=== PATIENT | male | born 1955 | race Caucasian/White ===

== ENCOUNTER 2016-10-19 11:29 | Observation (INO) | payer OTHER ==
--- NOTE | 2016-10-19 11:57 | PDOC ---
History of Present Illness - General Chief Complaint: Shortness of Breath Stated Complaint: shortness of breath Time Seen by Provider: 10/19/16 11:37 History Source: Patient Exam Limitations: No Limitations - History of Present Illness Initial Comments: 10/19/16 12:22 Patient is a 61-year-old male with past medical history of hypertension, GERD who presents to the emergency department today complaining of 2 episodes of dizziness and shortness of breath over the past 24 hours. Patient states that he was going about his daily activities when he had 2 separate episodes where he felt very lightheaded and dizzy. He had to sit down to feel better; he also had associated shortness of breath and chest pressure. Patient states that his blood pressure is elevated today and that is not usual for him. He has no diagnosis of hypertension. Pt. reports having a negative stress test approximately 4 times. He has had three separate cardiac caths in the past for similar symptoms with no stents placed. Denies fevers, chills, palpitations, edema, weakness, unsteady gait, nausea, vomiting, diarrhea, constipation, frequency, urgency, hematuria Past History - Travel Traveled outside of the country in the last 30 days: No Close contact w/someone who was outside of country & ill: No - Past Medical History Allergies/Adverse Reactions: Allergies Allergy/AdvReac Type Severity Reaction Status Date / Time No Known Allergies Allergy Verified 03/18/15 19:53 Home Medications: Ambulatory Orders Aspirin Coated [Ecotrin -] 81 mg PO DAILY #30 tab 10/20/16 Metoprolol Succinate [Toprol XL -] 25 mg PO DAILY #30 tab 10/20/16 Rosuvastatin [Crestor -] 10 mg PO HS #30 tablet 10/20/16 Cardiac Disorders: Yes (IRREGULAR HEART BEAT) GI Disorders: Yes (GERD) HTN: Yes Hypercholesterolemia: Yes Psychiatric Problems: Yes (H/O ANXIETY..NON MEDICATED) - Surgical History Abdominal Surgery: Yes Appendectomy: Yes - Immunization History Immunization Up to Date: (unknown) - Psycho/Social/Smoking Cessation Hx Anxiety: Yes Suicidal Ideation: No Smoking Status: No Smoking History: Never smoked Have you smoked in the past 12 months: No Number of Cigarettes Smoked Daily: 0 Information on smoking cessation initiated: No Hx Alcohol Use: No Drug/Substance Use Hx: No Substance Use Type: Alcohol Hx Substance Use Treatment: No Review of Systems - Review of Systems Constitutional: Yes: Weakness. No: Fever, Malaise HEENTM: No: Recent change in vision, Double Vision, Throat Pain, Throat Swelling Respiratory: Yes: Shortness of Breath, SOB with Exertion. No: Cough, Orthopnea , Wheezing Cardiac (ROS): Yes: Chest Pain, Lightheadedness. No: Edema, Irregular Heart Rate, Palpitations ABD/GI: No: Diarrhea, Nausea, Vomiting : No: Burning, Dysuria, Frequency, Flank Pain, Hematuria Musculoskeletal: No: Back Pain, Joint Pain Neurological: Yes: Dizziness. No: Headache, Numbness, Weakness, Unsteady Gait Psychiatric: Yes: Anxiety All Other Systems: Reviewed and Negative *Physical Exam - Vital Signs Last Vital Signs Temp Pulse Resp BP Pulse Ox 99 F 78 18 183/88 98 10/19/16 11:40 10/19/16 11:46 10/19/16 11:40 10/19/16 11:40 10/19/16 11:46 - Physical Exam Comments: 10/19/16 13:22 GENERAL: Well developed, well nourished. Awake and alert. No acute distress. HEENT: Normocephalic, atraumatic. PERRLA, EOMI. No conjunctival pallor. Sclera are non- icteric. Moist mucous membranes. Oropharynx is clear. NECK: Supple. Full ROM. No JVD. Carotid pulses 2+ and symmetric, without bruits. No thyromegaly. No lymphadenopathy. CARDIOVASCULAR: Regular rate and rhythm. No murmurs, rubs, or gallops. Distal pulses are 2+ and symmetric. PULMONARY: No evidence of respiratory distress. Lungs clear to auscultation bilaterally. No wheezing, rales or rhonchi. ABDOMINAL: Soft. Non-tender. Non-distended. No rebound or guarding. No organomegaly. Normoactive bowel sounds. MUSCULOSKELETAL Normal range of motion at all joints. No bony deformities or tenderness. No CVA tenderness. EXTREMITIES: No cyanosis. No clubbing. No edema. No calf tenderness. SKIN: Warm and dry. Normal capillary refill. No rashes. No jaundice. NEUROLOGICAL: Alert, awake, appropriate. Cranial nerves 2-12 intact. No deficits to light touch and temperature in face, upper extremities and lower extremities. No motor deficits in the in face, upper extremities and lower extremities. Normoreflexic in the upper and lower extremities. Normal speech. Toes are down- going bilaterally. Gait is normal without ataxia. PSYCHIATRIC: Cooperative. Good eye contact. Appropriate mood and affect. Heart Score/ECG Review - History History: Moderately suspicious - Electrocardiogram EKG: Normal - Age Age: 45-65 - Risk Factors Risk Factors Heart Score: Yes Hx Hypercholesterolemia, Yes Hx Obesity Based on the list above the patient has:: 1-2 risk factors - Troponin Troponin: </= normal limit - Score Heart Score - Total: 3 ED Treatment Course - LABORATORY CBC & Chemistry Diagram: 10/20/16 05:35 10/20/16 05:35 Medical Decision Making - Medical Decision Making 10/19/16 13:37 Patient is a 61-year-old male with past medical history of hypertension, GERD who presents to the emergency department today complaining of 2 episodes of dizziness and shortness of breath over the past 24 hours. Given the patient had multiple episodes of dizziness and chest pressure and shortness of breath concerned that this could possibly be ACS, dehydration. 1. CBC, CMP, Cardiac Profie, PT/INR 2. CXR, EKG 3. Re-evaluate EKG: Rate 78, Normal intervals, normal axis. Sinus rhythm, with no acute ST-T wave changes 10/19/16 14:28 CBC, CMP, and Troponin are WNL. Given story, cardiac history and length of time since last stress test, will call to admit for observation. 10/19/16 14:32 [facility] accepts the pt. for observation at this time *DC/Admit/Observation/Transfer Diagnosis at time of Disposition: Hypertensive urgency, Near syncope - Discharge Dispostion Disposition: HOME Condition at time of disposition: Stable Admit: Yes - Prescriptions
[2016-10-19 12:25] LABS: MCH 27.5 pg (25.7-33.7); MCHC 33.3 g/dl (32.0-35.9); MEAN CELL VOLUME 82.6 fl (80-96); MEAN PLT VOLUME 7.6 fl (7.5-11.1); PLATELET COUNT 213 K/MM3 (134-434); RDW 14.1 % (11.9-15.9); WHITE BLOOD COUNT 8.9 K/mm3 (4.0-10.0)
[2016-10-19 12:27] LABS: URINE APPEARANCE CLEAR; URINE BILIRUBIN NEGATIVE (NEGATIVE); URINE BLOOD NEGATIVE (NEGATIVE); URINE COLOR COLORLESS; URINE GLUCOSE (UA) NEGATIVE (NEGATIVE); URINE KETONE NEGATIVE (NEGATIVE); URINE LEUK ESTERASE NEGATIVE (NEGATIVE); URINE NITRITE NEGATIVE (NEGATIVE); URINE PROTEIN NEGATIVE (NEGATIVE); URINE UROBILINOGEN NEGATIVE mg/dL (0.2-1.0)
--- NOTE | 2016-10-19 12:27 | PDOC ---
*Physical Exam - Vital Signs Last Vital Signs Temp Pulse Resp BP Pulse Ox 99 F 78 18 183/88 98 10/19/16 11:40 10/19/16 11:46 10/19/16 11:40 10/19/16 11:40 10/19/16 11:46 Heart Score/ECG Review #1 General ECG Interpretation: Sinus Rhythm, Normal Rate (78), Normal Intervals, No acute ischemic changes ED Treatment Course - LABORATORY CBC & Chemistry Diagram: 10/19/16 12:16 10/19/16 12:16 Medical Decision Making - Medical Decision Making 10/19/16 12:23 Patient seen and evaluated with the nurse practitioner. I agree with the overall evaluation, assessment, and management with the following summary of visit: 61-year-old male with history of high cholesterol and reportedly normal stress and cardiac catheterizations in the past, last was 4-5 years ago, presents with 2 episodes of lightheadedness and shortness of breath, each very transient. Currently asx, reports unlimited exercise tolerance at baseline. Elevated blood pressure 180/90, vitals otherwise normal. Well-appearing, exam is normal Question new onset hypertension/hypertensive urgency versus ACS. Will need cardiac workup including echo and blood pressure control. labs, ekg, cxr bp med admit obs tele *DC/Admit/Observation/Transfer Diagnosis at time of Disposition: Hypertensive urgency, Pre-syncope
[2016-10-19 12:52] LABS: ALBUMIN 3.9 g/dl (3.4-5.0); ALK PHOS 146 U/L (45-117); ANION GAP 6 (8-16); BILIRUBIN,TOTAL 0.4 mg/dL (0.2-1.0); CALCIUM 8.8 mg/dL (8.5-10.1); CO2 30 mmol/L (21-32); CREATININE 0.7 mg/dL (0.7-1.3); GLUCOSE,RANDOM 98 mg/dL (74-106); SGOT/AST 24 U/L (15-37); SGPT/ALT 41 U/L (12-78); TOT PROT 7.3 g/dl (6.4-8.2)
[2016-10-19 12:54] LABS: TROPONIN I < 0.02 ng/ml (0.00-0.05)
[2016-10-19 12:58] LABS: INR 1.02 (0.82-1.09); PROTHROMBIN TIME (PATIENT) 11.2 SEC (9.98-11.88)
--- NOTE | 2016-10-19 15:35 | CON.CARD ---
Consult Consult Specialty:: Cardiology Referred by:: Hospitalist Reason for Consultation:: Cardiac evaluation - History of Present Illness Chief Complaint: Dizziness History of Present Illness: Patient is a 61 year old male of descent with underlying history of hypercholesterolemia and new onset hypertension and underlying GERD and anxiety who presents with complaints of dizziness and shortness of breath for the past 24 hours. He denies history of syncope. He denies chest pain or palpitations. He reports history of arrhythmia, but could not specify what kind of arrhythmia in the past. He has had abnormal stress testing in the past and was sent for cardiac catheterization at [facility] about 10 years ago and then at [facility] 5-6 years ago. He states that it was unremarkable without need for PCI. He denies fever or chills. he denies paroxysmal nocturnal dyspnea or orthopnea. He denies headache at this time. He denies nausea, vomiting, diarrhea or abdominal pain. 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 No: CAD Psych: Yes: Anxiety, Panic Endocrine: No: Diabetes Mellitus - Past Surgical History Past Surgical History: Yes: Appendectomy - Alcohol/Substance Use Hx Alcohol Use: Yes (Social) History of Substance Use: reports: None - Smoking History Smoking history: Never smoked Have you smoked in the past 12 months: No Aproximately how many cigarettes per day: 0 Home Medications - Allergies Allergies/Adverse Reactions: Allergies Allergy/AdvReac Type Severity Reaction Status Date / Time No Known Allergies Allergy Verified 03/18/15 19:53 - Home Medications Home Medications: Ambulatory Orders Rosuvastatin Calcium [Crestor] 10 mg PO HS 03/18/15 Family Disease History - Family Disease History Family History: Denies Review of Systems - Review of Systems Constitutional: denies: Chills, Fever Cardiovascular: reports: Shortness of Breath. denies: Chest Pain, Palpitations Respiratory: reports: Snoring, SOB. denies: Cough, Hemoptysis, Orthopnea, PND, Wheezing Gastrointestinal: denies: Abdominal Pain, Constipation, Diarrhea, Melena, Nausea , Rectal Bleeding, Vomiting Neurological: reports: Dizziness, Syncope (Near syncope). denies: Headache, Numbness, Seizure, Tremors, Unsteady Gait, Weakness Vital Signs: Vital Signs Temperature 99 F 10/19/16 11:40 Pulse Rate 76 10/19/16 14:08 Respiratory Rate 16 10/19/16 14:08 Blood Pressure 142/74 10/19/16 14:08 O2 Sat by Pulse Oximetry (%) 98 10/19/16 14:08 HENT: Yes: Atraumatic Neck: Yes: Supple Respiratory: Yes: CTA Bilaterally Gastrointestinal: Yes: Normal Bowel Sounds, Soft, Abdomen, Obese. No: Tenderness Cardiovascular: Yes: Regular Rate and Rhythm JVD: No Carotid Bruit: No PMI: Non-Displaced Heart Sounds: Yes: S1, S2. No: Gallop Edema: No Peripheral Pulses WNL: Yes - Other Data Labs, Other Data: INR, PTT INR 1.02 (0.82-1.09) 10/19/16 12:16 Laboratory Results - last 24 hr 10/19/16 10/19/16 10/19/16 12:16 12:16 12:16 WBC 8.9 RBC 5.42 Hgb 14.9 Hct 44.8 MCV 82.6 MCH 27.5 MCHC 33.3 RDW 14.1 Plt Count 213 MPV 7.6 Neutrophils % Y Lymphocytes % Y INR Sodium 138 Potassium 3.9 Chloride 102 Carbon Dioxide 30 Anion Gap 6 L BUN 11 D Creatinine 0.7 Creat Clearance w eGFR > 60 Random Glucose 98 Calcium 8.8 Total Bilirubin 0.4 D AST 24 ALT 41 Alkaline Phosphatase 146 H Creatine Kinase 114 Troponin I < 0.02 Total Protein 7.3 Albumin 3.9 Urine Color Colorless Urine Appearance Clear Urine pH 7.0 Urine Protein Negative Urine Glucose (UA) Negative Urine Ketones Negative Urine Blood Negative Urine Nitrite Negative Urine Bilirubin Negative Urine Urobilinogen Negative Ur Leukocyte Esterase Negative Normal sinus rhythm with no ST-T abnormality Echo: Pending Imaging - Results Chest X-ray: Report Reviewed Ultrasound: Report Reviewed (Carotid Doppler) EKG: Report Reviewed Problem List - Problems (1) Near syncope Code(s): R55 - SYNCOPE AND COLLAPSE (2) Fatty liver Code(s): K76.0 - FATTY (CHANGE OF) LIVER, NOT ELSEWHERE CLASSIFIED (3) GERD (gastroesophageal reflux disease) Code(s): K21.9 - GASTRO-ESOPHAGEAL REFLUX DISEASE WITHOUT ESOPHAGITIS Qualifiers: Esophagitis presence: with esophagitis Qualified Code(s): K21.0 - Gastro-esophageal reflux disease with esophagitis (4) Panic attack Code(s): F41.0 - PANIC DISORDER WITHOUT AGORAPHOBIA (5) Anxiety Code(s): F41.9 - ANXIETY DISORDER, UNSPECIFIED (6) HTN (hypertension) Code(s): I10 - ESSENTIAL (PRIMARY) HYPERTENSION Qualifiers: Hypertension type: essential hypertension Qualified Code(s): I10 - Essential (primary) hypertension (7) Hypercholesterolemia Code(s): E78.00 - PURE HYPERCHOLESTEROLEMIA, UNSPECIFIED (8) Obstructive sleep apnea Code(s): G47.33 - OBSTRUCTIVE SLEEP APNEA (ADULT) (PEDIATRIC) Assessment/Plan 1. Dizziness and near syncope, etiology to be determined 2. Hypertension 3. Hypercholesterolemia 4. Anxiety disorder/panic attack (intermittent) 5. GERD 6. Suspect OSAS PLAN: 1. Serial cardiac enzyme 2. Transthoracic echocardiography to assess RV/LV and valvular function 3. Continue Rosuvastatin and check fasting lipid panel 4. Consider adding low dose beta jorje as tolerated - Metoprolol ER 25 mg once a day 5. ASA 81 mg once a day 6. Obtain prior cardiac catheterization report from [facility] 7. Sleep study to be considered as outpatient and CPAP if clinically indicated 8. Check TSH Further plans are to follow Koko Velazquez MD
[2016-10-19] MEDS ORDERED: METOPROLOL SUCCINATE 50 MG TAB.SR.24H (FP) ONE (16:25)
[2016-10-19] MEDS ORDERED: ASPIRIN 81 MG CHEWABLE TABLETS ONE (16:25)
[2016-10-19] MEDS: ASPIRIN COATED 81 MG TABLET.EC PO SCH (17:03)
[2016-10-19] MEDS: METOPROLOL SUCCINATE 25 MG TAB.SR.24H (FP) PO SCH (17:03)
[2016-10-19 17:09] VITALS: BMI 31.6
--- NOTE | 2016-10-19 17:42 | HP ---
Admitting History and Physical - Admission Chief Complaint: pre syncope/dizziness x2 History of Present Illness: HPI This 61 year old male with pmhx of HLD, ? arrhythmia, cardiac cath at [facility] , 6 years ago no stents, appendectomy and "greasy liver" presented to the ED after feeling lightheaded, dizzy with SOB at work. 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 This was the second episode where he felt dizzy and had to sit down. The first one was at 11pm last night. Neither times did he completely lose consciousness nor hit his head. The episode today he felt hot and sweaty before hand with sob. While in ED he was found to be hypertensive. 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 His last stress test was 4 years ago and he sees "Orly" at [facility]. Currently, he denies shortness of breath, CP, nausea, vomiting, palpitations changes in bowel or urinary habits. History Source: Patient - Past Medical History Cardiovascular: Yes: HTN, Hyperlipdemia. 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 History of Recent Travel: No Home Medications - Allergies Allergies/Adverse Reactions: Allergies Allergy/AdvReac Type Severity Reaction Status Date / Time No Known Allergies Allergy Verified 03/18/15 19:53 - Home Medications Home Medications: Ambulatory Orders Rosuvastatin Calcium [Crestor] 10 mg PO HS 03/18/15 Review of Systems - Review of Systems Constitutional: reports: No Symptoms Eyes: reports: No Symptoms HENT: reports: No Symptoms Neck: reports: No Symptoms Cardiovascular: reports: Shortness of Breath Respiratory: reports: SOB Gastrointestinal: reports: No Symptoms Genitourinary: reports: No Symptoms Musculoskeletal: reports: No Symptoms Integumentary: reports: No Symptoms Neurological: reports: Change in LOC, Dizziness Endocrine: reports: No Symptoms Hematology/Lymphatic: reports: No Symptoms Psychiatric: reports: No Symptoms Physical Examination Vital Signs: Vital Signs Temperature 99 F 10/19/16 11:40 Pulse Rate 101 H 10/19/16 17:01 Respiratory Rate 18 10/19/16 17:01 Blood Pressure 160/95 10/19/16 17:01 O2 Sat by Pulse Oximetry (%) 97 10/19/16 17:01 Constitutional: Yes: No Distress Eyes: Yes: Conjunctiva Clear HENT: Yes: Atraumatic Neck: Yes: Supple Cardiovascular: Yes: Regular Rate and Rhythm, S1, S2 Respiratory: Yes: Regular, CTA Bilaterally Gastrointestinal: Yes: Normal Bowel Sounds, Soft Renal/: Yes: WNL Musculoskeletal: Yes: WNL Extremities: Yes: WNL Edema: No Integumentary: Yes: WNL Neurological: Yes: Alert, Oriented, Cran Nerves II-XII Intact Psychiatric: Yes: Alert, Oriented Imaging - Results Chest X-ray: Report Reviewed (no acute pathology), Image Reviewed Cat Scan: Report Reviewed (no acute intracranial pathology) Ultrasound: Report Reviewed (no hemodynamic stenosis no CD) Problem List - Problems (1) Hypercholesterolemia Code(s): E78.00 - PURE HYPERCHOLESTEROLEMIA, UNSPECIFIED (2) Near syncope Code(s): R55 - SYNCOPE AND COLLAPSE Assessment/Plan Assessment: 61 year old male admitted with near syncope x2, dizziness, and shortness of breath. Plan: 1. Pre syncope - possibly d.t new onset HTN, r/o cardiac arrhythmia - CT head and CD unremarkable - ECHO ordered - Check TSH - Obtain [place] cardiac cath report - Start ASA - Cardiology seeing 2. SOB - Initial trop negative - Trend trops - BEA sleep study 3. HLD - Lipid panel - Continue crestor 4. HTN - Start metoprolol 25mg daily 5. DVT ppx - SCDs Dispo: - Admitted for tele observation Visit type - Emergency Visit Emergency Visit: Yes ED Registration Date: 10/19/16 Care time: The patient presented to the Emergency Department on the above date and was hospitalized for further evaluation of their emergent condition. - New Patient This patient is new to me today: Yes Date on this admission: 10/19/16 - Critical Care Critical Care patient: No
[2016-10-19 19:39] LABS: TROPONIN I < 0.02 ng/ml (0.00-0.05)
[2016-10-19] MEDS ORDERED: ROSUVASTATIN CA 10 MG TABLET (FP) PO SCH (22:00)
[2016-10-20 07:24] LABS: BASOPHIL 0.3 % (0-2.0); EOSINOPHIL 3.5 % (0-4.5); MCH 27.5 pg (25.7-33.7); MCHC 32.9 g/dl (32.0-35.9); MEAN CELL VOLUME 83.6 fl (80-96); MEAN PLT VOLUME 8.1 fl (7.5-11.1); NEUTROPHILS 52.6 % (42.8-82.8); PLATELET COUNT 219 K/MM3 (134-434); WHITE BLOOD COUNT 7.8 K/mm3 (4.0-10.0)
[2016-10-20 07:51] LABS: ALBUMIN 3.3 g/dl (3.4-5.0); ANION GAP 9 (8-16); BILIRUBIN,TOTAL 0.2 mg/dL (0.2-1.0); CALCIUM 8.5 mg/dL (8.5-10.1); CO2 26 mmol/L (21-32); CREATININE 0.7 mg/dL (0.7-1.3); GLUCOSE,RANDOM 93 mg/dL (74-106); MAGNESIUM 2.4 mg/dL (1.8-2.4); PHOSPHOROUS 4.2 mg/dL (2.5-4.9); SGOT/AST 15 U/L (15-37); SGPT/ALT 32 U/L (12-78); TOT PROT 6.2 g/dl (6.4-8.2)
[2016-10-20 07:54] LABS: ALK PHOS 118 U/L (45-117); TROPONIN I < 0.02 ng/ml (0.00-0.05)
[2016-10-20 09:58] LABS: THYROID STIMULATING HORMONE 1.73 uIU/ml (0.358-3.74)
[2016-10-20] MEDS: METOPROLOL SUCCINATE 25 MG TAB.SR.24H (FP) PO SCH (10:06)
[2016-10-20] MEDS: ASPIRIN COATED 81 MG TABLET.EC PO SCH (10:06)
--- NOTE | 2016-10-20 13:07 | PN ---
Progress Note, Physician History of Present Illness: No further dizziness, near or true syncope. - Current Medication List Current Medications: Active Medications Aspirin (Ecotrin -) 81 mg PO DAILY [facility] Last Admin: 10/20/16 10:06 Dose: 81 mg Metoprolol Succinate (Toprol Xl -) 25 mg PO DAILY [facility] Last Admin: 10/20/16 10:06 Dose: 25 mg Rosuvastatin Calcium (Crestor -) 10 mg PO HS [facility] Last Admin: 10/19/16 23:00 Dose: 10 mg - Objective Vital Signs: Vital Signs Temperature 97.8 F 10/20/16 06:00 Pulse Rate 68 10/20/16 06:00 Respiratory Rate 20 10/20/16 06:00 Blood Pressure 116/67 10/20/16 06:00 O2 Sat by Pulse Oximetry (%) 97 10/19/16 17:01 Constitutional: Yes: No Distress, Calm Neck: Yes: Supple Cardiovascular: Yes: Regular Rate and Rhythm Respiratory: Yes: Regular, CTA Bilaterally Gastrointestinal: Yes: Normal Bowel Sounds, Soft Edema: No Labs: CBC, BMP 10/20/16 05:35 10/20/16 05:35 INR, PTT INR 1.02 (0.82-1.09) 10/19/16 12:16 - ....Imaging EKG: Report Reviewed (Tele: No events) Problem List - Problems (1) HTN (hypertension) Code(s): I10 - ESSENTIAL (PRIMARY) HYPERTENSION Qualifiers: Hypertension type: essential hypertension Qualified Code(s): I10 - Essential (primary) hypertension (2) Hypercholesterolemia Code(s): E78.00 - PURE HYPERCHOLESTEROLEMIA, UNSPECIFIED (3) Near syncope Code(s): R55 - SYNCOPE AND COLLAPSE Assessment/Plan 1. Dizziness and near syncope since resolved 2. Hypertension 3. Hypercholesterolemia 4. Anxiety disorder/panic attack (intermittent) 5. GERD 6. Suspect OSAS PLAN: 1. Ruled out for CT 2. F/u transthoracic echocardiography to assess RV/LV and valvular function 3. Continue Rosuvastatin 10 qhs, Metoprolol ER 25 mg once a day and ASA 81 mg once a day 4. Obtain prior cardiac catheterization report from [facility] for review 5. Sleep study to be considered as outpatient and CPAP if clinically indicated 6. D/c planning
--- NOTE | 2016-10-20 14:57 | EKG ---
Test Reason : Blood Pressure : / mmHG Vent. Rate : 078 BPM Atrial Rate : 078 BPM P-R Int : 160 ms QRS Dur : 088 ms QT Int : 382 ms P-R-T Axes : 031 -23 014 degrees QTc Int : 435 ms NORMAL SINUS RHYTHM NORMAL ECG WHEN COMPARED WITH ECG OF 18-MAR-2015 21:15, NO SIGNIFICANT CHANGE WAS FOUND Confirmed by CASS PAULINO MD ([id number]) on 10/20/2016 2:56:45 PM Referred By: Confirmed By:CASS PAULINO MD
--- NOTE | 2016-10-20 15:18 | DS ---
Physical Exam: SUBJECTIVE: Patient seen and examined at bedside. Denies all c/o at present. Requesting stress test. OBJECTIVE: Vital Signs 3 Period Temp Pulse Resp BP Sys/Castañeda Pulse Ox Last 24 Hr 97.7 F-98.8 F 68-88 18-20 116-154/66-82 PHYSICAL EXAM GENERAL: The patient is awake, alert, and fully oriented, in no acute distress. HEAD: Normal with no signs of trauma. EYES: PERRL, extraocular movements intact, sclera anicteric, conjunctiva clear. ENT: Ears normal, nares patent, oropharynx clear without exudates, moist mucous membranes. NECK: Trachea midline, full range of motion, supple. No JVD present. LUNGS: Breath sounds equal, clear to auscultation bilaterally, no wheezes, no crackles, no accessory muscle use. HEART: Regular rate and rhythm, S1, S2 without murmur, rub or gallop. ABDOMEN: Soft, nontender, nondistended, normoactive bowel sounds, no guarding, no rebound, no hepatosplenomegaly, no masses. EXTREMITIES: 2+ pulses, warm, well-perfused, no edema. NEUROLOGICAL: Cranial nerves II through XII grossly intact. Normal speech, gait steady. PSYCH: Normal mood, normal affect. SKIN: Warm, dry, normal turgor, no rashes or lesions noted. LABS Laboratory Results - last 24 hr 3 10/19/16 10/20/16 10/20/16 18:30 05:35 05:35 WBC 7.8 RBC 5.00 Hgb 13.7 Hct 41.8 MCV 83.6 MCH 27.5 MCHC 32.9 RDW 14.0 Plt Count 219 MPV 8.1 Neutrophils % 52.6 Lymphocytes % 34.0 Monocytes % 9.6 Eosinophils % 3.5 Basophils % 0.3 D Sodium 141 Potassium 4.0 Chloride 106 Carbon Dioxide 26 Anion Gap 9 BUN 13 Creatinine 0.7 Creat Clearance w eGFR > 60 Random Glucose 93 Calcium 8.5 Phosphorus 4.2 Magnesium 2.4 Total Bilirubin 0.2 D AST 15 D ALT 32 D Alkaline Phosphatase 118 H Creatine Kinase 86 Troponin I < 0.02 < 0.02 Total Protein 6.2 L Albumin 3.3 L TSH 1.73 HOSPITAL COURSE: Date of Admission:10/19/16 Date of Discharge: 10/20/16 Minutes to complete discharge: 45 Discharge Summary Reason For Visit: HYPERTENSIVE URGENCY, PRE-SYNCOPE Current Active Problems Anxiety (Acute) HTN (hypertension) (Acute) Hypercholesterolemia (Acute) Hypertensive urgency (Acute) Near syncope (Acute) Obstructive sleep apnea (Acute) Hospital Course: This 61 year old male with pmhx of HLD, ? arrhythmia, cardiac cath at [facility] , 6 years ago no stents, appendectomy and "greasy liver" presented to the ED after feeling lightheaded, dizzy with SOB at work. 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 This was the second episode where he felt dizzy and had to sit down. The first one was at 11pm 10/18. Neither time did he completely lose consciousness nor hit his head. The episode on 10/19, he felt hot and sweaty before he felt sob. While in ED he was found to be hypertensive. He denied shortness of breath, CP, nausea, vomiting, palpitations changes in bowel or urinary habits. Troponins reulted (-) x3. Echo- LV normal size, function, and thickness. LV EF- normal. Mild to moderate tricuspid regurg. RV systolic pressure is normal. Mild pulmonic valve regurg. Trace mitral regurg. Head Ct- wnl. Carotid doppler showed no significant carotid stenosis. Metoprolol XR started at 50mg. Recommend BEA workup as an outpatient. Condition: Stable - Instructions Diet, Activity, Other Instructions: Eat a low low sodium diet. Take Toprol XL as newly prescribed. Call your primary doctor for an appointment within 2 weeks to schedule a sleep study. 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 Return to ER for dizziness, chest pain, shortness of breath, jaw pain, or any other complaints. Referrals: Nicholas Healy [Primary Care Provider] - Disposition: HOME - Home Medications Comprehensive Discharge Medication List: Ambulatory Orders Rosuvastatin Calcium [Crestor] 10 mg PO HS 03/18/15 This patient is new to me today: Yes Date on this admission: 10/20/16 Emergency Visit: Yes ED Registration Date: 10/19/16 Care time: The patient presented to the Emergency Department on the above date and was hospitalized for further evaluation of their emergent condition. Critical Care patient: No - Discharge Referral Referred to [facility] No
[2016-10-20 18:44] VITALS: BP 118/62; PULSE 79; TEMP 98.8
== END 2016-10-20 18:13 | disposition home or self-care (01) ==
LOC: JER 11:29 → JERBED 13:59 → UNDOADMOB 13:59 → INTOOBSV 13:59 → J4W 17:35 → JERBED 17:35 → J4W 17:44
PROVIDERS: ADMIT Internal Medicine; ATTEND Nurse Practitioner Family
DX: I16.0 Hypertensive urgency (principal); R55 Syncope and collapse; K76.0 Fatty (change of) liver, not elsewhere classified; K21.9 Gastro-esophageal reflux disease without esophagitis; F41.9 Anxiety disorder, unspecified; F41.0 Panic disorder [episodic paroxysmal anxiety]; I10 Essential (primary) hypertension; G47.33 Obstructive sleep apnea (adult) (pediatric); E78.00 Pure hypercholesterolemia, unspecified; Z98.61 Coronary angioplasty status
CPT/HCPCS: 36415; 70450-TC; 71020-TC; 80053; 81003; 82550; 83735; 84100; 84443; 84484; 85025; 85610; 93005; 93010; 93306-TC; 93880-TC; 99285-25; G0378

== ENCOUNTER 2016-11-10 08:32 | Emergency (ER) | payer OTHER ==
[2016-11-10 08:42] VITALS: TEMP 98.1; BMI 33.6
--- NOTE | 2016-11-10 09:28 | PDOC ---
History of Present Illness - General History Source: Patient Exam Limitations: No Limitations - History of Present Illness Initial Comments: 11/10/16 09:30 The patient is a 61 year old male, with a significant past medical history of HTN, HL and GERD, who presents to the emergency department with intermittent episodes of gradual onset bitemporal headache, lightheadedness, SOB for 2 years. The patient reports having of sensations of passing out when these episodes occur. Denies LOC. The patient describes his dizziness as the lightheadedness, especially when he is breathing fast and is often made worse after standing up. He reports being seen in this ER on 10/19/16 presenting with similar symptoms with no alleviation since his discharge. The patient notes having an increase of stress and anxiety since his passing away about 2 years ago, and this can trigger these episodes. He also states during these episodes noting his BP being elevated. He denies any recent fevers or chills. He denies any recent vomit, diarrhea or constipation. He denies any recent chest pain. He denies any recent dysuria, frequency, urgency or hematuria. He denies focal weakness or numbness. His daughter relates that he has had these episodes on and off for 2 years. She reports that he often calls her while he's having these episodes. When she goes over to his house she finds that she is able to calm him down by asking him to breathe through his nose and out of his mouth or by making him tea. She feels these episodes are triggered when he's feeling stressed or anxious. She feels that he needs to talk to a psychiatrist but reports having difficulty getting him into see his primary doctor to make a referral. She was able to make an appointment for him on November 15 but has not been able to make a sooner appointment and requests our help with this. Allergies: NKA Past surgical history: None reported. Social History: Nonsmoker. Denies EtOH use and recreational drug use. Primary Care Physician: Not on Staff <Edson Reinoso - Last Filed: 11/10/16 09:49> <Loida Bañuelos - Last Filed: 11/10/16 11:25> - General Chief Complaint: Headache Stated Complaint: ELEVATED BP Time Seen by Provider: 11/10/16 08:49 Past History <Edson Reinoso - Last Filed: 11/10/16 09:49> - Past Medical History Cardiac Disorders: Yes (IRREGULAR HEART BEAT) GI Disorders: Yes (GERD) HTN: Yes Hypercholesterolemia: Yes Psychiatric Problems: Yes (H/O ANXIETY..NON MEDICATED) - Surgical History Abdominal Surgery: Yes Appendectomy: Yes - Immunization History Immunization Up to Date: (unknown) - Psycho/Social/Smoking Cessation Hx Anxiety: Yes Suicidal Ideation: No Smoking Status: No Smoking History: Never smoked Have you smoked in the past 12 months: No Number of Cigarettes Smoked Daily: 0 Information on smoking cessation initiated: No Hx Alcohol Use: No Drug/Substance Use Hx: No Substance Use Type: Alcohol Hx Substance Use Treatment: No <Nassef,Yomna - Last Filed: 11/10/16 11:25> - Past Medical History Allergies/Adverse Reactions: Allergies Allergy/AdvReac Type Severity Reaction Status Date / Time No Known Allergies Allergy Verified 11/10/16 08:39 Home Medications: Ambulatory Orders Aspirin Coated [Ecotrin -] 81 mg PO DAILY #30 tab 10/20/16 Metoprolol Succinate [Toprol XL -] 25 mg PO DAILY #30 tab 10/20/16 Rosuvastatin [Crestor -] 10 mg PO HS #30 tablet 10/20/16 Diazepam [Valium] 2 mg PO DAILY #4 tablet MDD 1 tablet 11/10/16 Meclizine HCl [Antivert -] 25 mg PO TID #21 tablet 11/10/16 Review of Systems - Review of Systems Able to Perform ROS?: Yes Comments:: 11/10/16 09:30 GENERAL/CONSTITUTIONAL: No fever or chills. No weakness. HEAD, EYES, EARS, NOSE AND THROAT: No change in vision. No ear pain or discharge. No sore throat. CARDIOVASCULAR: +SOB. No chest pain +lightheadedness RESPIRATORY: No cough, wheezing, or hemoptysis. GASTROINTESTINAL: +nausea. No vomiting, diarrhea or constipation. GENITOURINARY: No dysuria, frequency, or change in urination. MUSCULOSKELETAL: No joint or muscle swelling or pain. No neck or back pain. SKIN: No rash NEUROLOGIC: +headache. No loss of consciousness, or change in strength/ sensation. ENDOCRINE: No increased thirst. No abnormal weight change. HEMATOLOGIC/LYMPHATIC: No anemia, easy bleeding, or history of blood clots. ALLERGIC/IMMUNOLOGIC: No hives or skin allergy. <Edson Reinoso - Last Filed: 11/10/16 09:49> *Physical Exam - Vital Signs Last Vital Signs Temp Pulse Resp BP Pulse Ox 98.1 F 75 18 158/85 98 11/10/16 08:39 11/10/16 09:23 11/10/16 08:39 11/10/16 08:39 11/10/16 09:23 - Physical Exam Comments: 11/10/16 09:30 GENERAL: Awake, alert, and fully oriented, in no acute distress HEAD: No signs of trauma EYES: PERRLA, EOMI, sclera anicteric, conjunctiva clear ENT: Auricles normal inspection, hearing grossly normal, nares patent, oropharynx clear without exudates. Moist mucosa NECK: Normal ROM, supple, no lymphadenopathy, JVD, or masses LUNGS: Breath sounds equal, clear to auscultation bilaterally. No wheezes, and no crackles HEART: Regular rate and rhythm, normal S1 and S2, no murmurs, rubs or gallops ABDOMEN: Soft, nontender, normoactive bowel sounds. No guarding, no rebound. No masses EXTREMITIES: Normal range of motion, no edema. No clubbing or cyanosis. No cords , erythema, or tenderness NEUROLOGICAL: Normal speech, cranial nerves intact, negative pronator drift, 5/ 5 strength in all 4 extremities, normal sensation to light touch in all 4 extremities, normal cerebellar exam, normal gait, normal reflexes and tone SKIN: Warm, Dry, normal turgor, no rashes or lesions noted. <Edson Reinoso - Last Filed: 11/10/16 09:49> - Vital Signs Last Vital Signs Temp Pulse Resp BP Pulse Ox 98.1 F 75 18 158/85 98 11/10/16 08:39 11/10/16 09:23 11/10/16 08:39 11/10/16 08:39 11/10/16 09:23 <Loida Bañuelos - Last Filed: 11/10/16 11:25> Heart Score/ECG Review - History History: Slightly suspicious - Electrocardiogram EKG: Non specific repolarization disturbance - Age Age: 45-65 - Risk Factors Risk Factors Heart Score: Yes Hx Hypercholesterolemia, Yes Hx Hypertension Based on the list above the patient has:: 1-2 risk factors - Troponin Troponin: </= normal limit - Score Heart Score - Total: 3 #1 ECG reviewed & interpreted by me at: 09:30 11/10/16 09:33 Normal sinus rhythm, rate of 73, normal axis, normal intervals, T-wave inversion in lead 3, T-wave flattening in aVF. No ST elevations. No changes when compared to EKG from 2 weeks ago. <Loida Bañuelos - Last Filed: 11/10/16 11:25> ED Treatment Course - LABORATORY CBC & Chemistry Diagram: 11/10/16 09:15 11/10/16 09:15 - RADIOLOGY Radiograph Interpretation: 11/10/16 09:48 CHEST X-RAY IMPRESSIONS reported by : No evidence of active pulmonary disease. <Edson Reinoso - Last Filed: 11/10/16 09:49> - LABORATORY CBC & Chemistry Diagram: 11/10/16 09:15 11/10/16 09:15 - RADIOLOGY Radiology Studies Ordered: Category Date Time Status CHEST PA & LAT [RAD] Stat Radiology 11/10/16 09:15 Ordered <Loida Bañuelos - Last Filed: 11/10/16 11:25> Medical Decision Making - Medical Decision Making 11/10/16 09:36 61-year-old hx HTN, HL p/w lightheadedness associated with SOB, headache, and elevated blood pressure. Exam within normal limits. Patient was seen here and admitted for the same 2 weeks ago and had a CTH, cardiac workup including echo and carotid US with no findings. Patient was also observed on telemetry for arrhythmia with no findings. Patient was discharged to follow-up with primary care doctor however daughter relates he's been having difficulty making a soon enough appointment. Presentation is likely consistent with panic attack given association with thoughts of his passing away however patient does have medical risk factors - as such we will do a medical workup here and attempt to assist patient in making a sooner appointment with primary care doctor. Daughter is amenable to this plan. -labs, -CXR -reassess 11/10/16 09:43 11/10/16 10:26 On reevaluation patient is currently asymptomatic. Labs thus far unremarkable including negative troponin. Chest x-ray negative for acute pathology. Daughter was able to contact primary care doctor and move her appointment up to tomorrow. If remainder of labs are unremarkable will discharge patient with follow-up tomorrow. 11/10/16 11:15 Labs and x-ray unremarkable. Patient remains asymptomatic, denies chest pain, shortness of breath, dizziness. Personally reviewed his echo done during his admission 2 weeks ago which was negative for any wall motion abnormalities and had a normal EF. Patient requesting medication for his vertigo which he reports a long history of. He reports intermittent room spinning dizziness for less than 30 seconds that's positional and a/w nausea. Daughter states she will make an ENT appointment for him as this was recommended to the months ago. Will discharge patient with a few pills of Valium for his vertigo as well as anxiety until he sees his primary care doctor tomorrow. Will also provide script for meclizine. Daughter and patient understand the plan. Stable for discharge home. <Loida Bañuelos - Last Filed: 11/10/16 11:25> *DC/Admit/Observation/Transfer - Attestations Scribe Attestion: 11/10/16 09:31 Documentation prepared by Edson Reinoso, acting as director medical for Loida Bañuelos MD. <Edson Reinoso - Last Filed: 11/10/16 09:49> - Discharge Dispostion Admit: No - Attestations Physician Attestion: 11/10/16 11:19 I, Dr. Loida Bañuelos MD, attest that this document has been prepared under my direction and personally reviewed by me in its entirety. I further attest, that it accurately reflects all work, treatment, procedures and medical decision -making performed by me. <Loida Bañuelos - Last Filed: 11/10/16 11:25> Diagnosis at time of Disposition: HTN (hypertension) Qualifiers: Hypertension type: unspecified Qualified Code(s): I10 - Essential (primary) hypertension - Discharge Dispostion Disposition: HOME Condition at time of disposition: Stable - Referrals Referrals: Nicholas Healy [Primary Care Provider] - - Patient Instructions Printed Discharge Instructions: DI for High Blood Pressure
[2016-11-10 09:38] LABS: BASOPHIL 0.5 % (0-2.0); EOSINOPHIL 2.1 % (0-4.5); MCH 27.6 pg (25.7-33.7); MCHC 33.1 g/dl (32.0-35.9); MEAN CELL VOLUME 83.2 fl (80-96); MEAN PLT VOLUME 7.7 fl (7.5-11.1); NEUTROPHILS 62.7 % (42.8-82.8); PLATELET COUNT 217 K/MM3 (134-434); WHITE BLOOD COUNT 8.8 K/mm3 (4.0-10.0)
[2016-11-10 10:02] LABS: ALBUMIN 3.7 g/dl (3.4-5.0); ANION GAP 6 (8-16); BILIRUBIN,TOTAL 0.3 mg/dL (0.2-1.0); CALCIUM 8.8 mg/dL (8.5-10.1); CO2 26 mmol/L (21-32); CREATININE 0.7 mg/dL (0.7-1.3); GLUCOSE,RANDOM 107 mg/dL (74-106); MAGNESIUM 2.3 mg/dL (1.8-2.4); SGOT/AST 18 U/L (15-37); SGPT/ALT 36 U/L (12-78)
[2016-11-10 10:05] LABS: ALK PHOS 131 U/L (45-117); TROPONIN I < 0.02 ng/ml (0.00-0.05)
[2016-11-10 11:49] VITALS: BP 149/79; PULSE 74
--- NOTE | 2016-11-10 14:39 | EKG ---
Test Reason : Blood Pressure : / mmHG Vent. Rate : 073 BPM Atrial Rate : 073 BPM P-R Int : 160 ms QRS Dur : 080 ms QT Int : 380 ms P-R-T Axes : 027 -24 -06 degrees QTc Int : 418 ms NORMAL SINUS RHYTHM NORMAL ECG WHEN COMPARED WITH ECG OF 19-OCT-2016 11:41, NO SIGNIFICANT CHANGE WAS FOUND Confirmed by SHAUNA COTTO MD ([id number]) on 11/10/2016 2:39:09 PM Referred By: Confirmed By:SHAUNA COTTO MD
== END 2016-11-10 11:47 | disposition home or self-care (01) ==
LOC: JER 08:32
DX: I10 Essential (primary) hypertension (principal); E78.00 Pure hypercholesterolemia, unspecified; K21.9 Gastro-esophageal reflux disease without esophagitis; I49.9 Cardiac arrhythmia, unspecified
CPT/HCPCS: 36415; 71020-TC; 80053; 83735; 84484; 85025; 93005; 93010; 99285-25

== ENCOUNTER 2019-01-12 20:54 | Observation (INO) | payer OTHER ==
[2019-01-12 21:00] VITALS: BMI 32.8
--- NOTE | 2019-01-12 22:54 | PDOC ---
History of Present Illness - General Chief Complaint: Shortness of Breath Stated Complaint: SOB/DIZZINESS/VOMITING Time Seen by Provider: 01/12/19 22:45 History Source: Patient, Old Records Exam Limitations: No Limitations - History of Present Illness Initial Comments: 01/12/19 22:54 HISTORY OF PRESENT ILLNESS: This 63 year old male with pmhx of HLD, irregular heartbeat, cardiac cath at [facility], 8 years ago no stents, appendectomy and "liver problems" presents to the ED after feeling lightheaded, dizzy with SOB over the past 4 days. He denies loss of consciousness. He reports having a warm sensation as well as a pressure to global head. He reports he had similar symptoms prior to his cardiac cath. Patient reports having intermittent nausea but denies any vomiting. He denies fevers, chills, cough, chest pain. No recent travel or sick contacts. PAST MEDICAL HISTORY: see HPI SURGICAL HISTORY: Denies ALLERGIES: No known drug allergies REVIEW OF SYSTEMS General/Constitutional: Denies fever or chills. Denies weakness, weight change. HEENT: Denies change in vision. Denies ear pain or discharge. Denies sore throat. Cardiovascular: see HPI Respiratory: see HPI Gastrointestinal:see HPI Genitourinary: Denies dysuria, frequency, or change in urination. Musculoskeletal: Denies joint or muscle swelling or pain. Denies neck or back pain. Skin and breasts: Denies rash or easy bruising. Neurologic: see HPI Psychiatric: Denies depression or anxiety. Endocrine: Denies increased thirst. Denies abnormal weight change. Hematologic/Lymphatic: Denies anemia, easy bleeding, or history of blood clots. Allergic/Immunologic: Denies hives or skin allergy. Denies latex allergy. PHYSICAL EXAM General Appearance: Well-appearing, appropriately dressed. No apparent distress , no intoxication. HEENT: EOMI, PERRLA, normal ENT inspection, normal voice, TMs normal, pharynx normal. No conjunctival pallor. No photophobia, scleral icterus. Neck: Supple. Trachea midline. No tenderness, rigidity, carotid bruit, stridor , lymphadenopathy, or thyromegaly. Respiratory/Chest: Lungs CTAB. No shortness of breath, chest tenderness, respiratory distress, accessory muscle use. No crackles, rales, rhonchi, stridor , wheezing, dullness Cardiovascular: RRR. S1, S2. No JVD, murmur, bradycardia, tachycardia. Vascular Pulses: Dorsalis-Pedis (R): 2+, Dorsalis-Pedis (L): 2+ Gastrointestinal/Abdominal: Normal bowel sounds. Abdomen soft, non-distended. No tenderness or rebound tenderness. No organomegaly, pulsatile mass, guarding, hernia, hepatomegaly, splenomegaly. Lymphatic: No adenopathy, tenderness. Musculoskeletal/Extremities: Normal inspection. FROM of all extremities, normal capillary refill. Pelvis Stable. No CVA tenderness. No tenderness to extremities, pedal edema, swelling, erythema or deformity. Integumentary: Appropriate color, dry, warm. No cyanosis, erythema, jaundice or rash Neurologic: president and chief commercial officer II-XII intact. Fully oriented, alert. Appropriate mood/affect. Motor strength 5/5. No appreciable EOM palsy, facial droop or sensory deficit. Gait is steady. Negative Romberg. Negative Maxwell-Hallpike. No nystagmus is noted. 01/12/19 22:56 Past History - Past Medical History Allergies/Adverse Reactions: Allergies Allergy/AdvReac Type Severity Reaction Status Date / Time No Known Allergies Allergy Verified 01/12/19 20:57 Home Medications: Ambulatory Orders Aspirin Coated [Ecotrin -] 81 mg PO DAILY #30 tab 10/20/16 Metoprolol Succinate [Toprol XL -] 25 mg PO DAILY #30 tab 10/20/16 Rosuvastatin [Crestor -] 10 mg PO HS #30 tablet 10/20/16 Diazepam [Valium] 2 mg PO DAILY #4 tablet MDD 1 tablet 11/10/16 Meclizine HCl [Antivert -] 25 mg PO TID #21 tablet 11/10/16 Cardiac Disorders: Yes (IRREGULAR HEART BEAT) COPD: No GI Disorders: Yes (GERD) HTN: Yes Hypercholesterolemia: Yes Psychiatric Problems: Yes (H/O ANXIETY..NON MEDICATED) - Surgical History Abdominal Surgery: Yes Appendectomy: Yes - Immunization History Immunization Up to Date: Yes (unknown) - Psycho Social/Smoking Cessation Hx Smoking Status: No Smoking History: Never smoked Have you smoked in the past 12 months: No Number of Cigarettes Smoked Daily: 0 Information on smoking cessation initiated: No Hx Alcohol Use: No Drug/Substance Use Hx: No Substance Use Type: Alcohol Hx Substance Use Treatment: No *Physical Exam - Vital Signs Last Vital Signs Temp Pulse Resp BP Pulse Ox 98.0 F 75 18 117/68 99 01/12/19 20:57 01/13/19 00:36 01/13/19 00:36 01/13/19 00:36 01/13/19 00:36 ED Treatment Course - LABORATORY CBC & Chemistry Diagram: 01/13/19 00:10 01/13/19 00:10 - ADDITIONAL ORDERS Additional order review: Laboratory Results 01/13/19 01/13/19 01/13/19 00:10 00:10 00:10 PT with INR 11.30 INR 0.96 Sodium 139 Potassium 3.9 Chloride 104 Carbon Dioxide 29 Anion Gap 6 L BUN 21.1 H Creatinine 0.8 Est GFR (CKD-EPI)AfAm 110.19 Est GFR (CKD-EPI)NonAf 95.07 Random Glucose 94 Calcium 8.6 Magnesium 2.4 Total Bilirubin 0.4 AST 18 ALT 36 Alkaline Phosphatase 115 Creatine Kinase 93 Cancelled Troponin I < 0.02 Cancelled B-Natriuretic Peptide 6.3 Total Protein 6.5 Albumin 3.6 01/13/19 00:10 RBC 5.21 MCV 83.6 MCHC 33.3 RDW 13.9 MPV 7.8 Neutrophils % 60.1 Lymphocytes % 26.7 Monocytes % 10.3 H Eosinophils % 2.6 Basophils % 0.3 - RADIOLOGY Radiology Studies Ordered: Category Date Time Status HEAD CT WITHOUT CONTRAST [CT] Stat CT Scan 01/12/19 23:01 Ordered CHEST PA & LAT [RAD] Stat Radiology 01/12/19 22:45 Taken Medical Decision Making - Medical Decision Making 01/12/19 23:00 A/P: 63-year-old male with 4 days of lightheadedness, shortness of breath dizziness and nausea Differential diagnosis includes but is not limited to ACS, vertigo, pneumonia, occult infection, heart failure Cardiac work-up Head CT EKG Likely admission 01/13/19 02:15 EKG reviewed by me: Sinus rhythm with rate of 83. Normal intervals present. Occasional PVCs present. No ischemic changes noted. No significant change from EKG performed 11/10/2016. Echo performed 10/20/2016-LV size, thickness and function are normal Left ventricular EF is normal Left ventricular wall motion is normal There is mild to moderate tricuspid regurgitation Right ventricular systolic pressure is normal Mild pulmonic valvular regurgitation Left ventricular filling pattern is normal for age There is trace mitral regurgitation. Laboratory testing is unremarkable with a troponin of less than 0.02. BNP of 6.3. Chest x-ray as read by me: Angles sharp. Lung russell clear without consolidation or infiltrate noted. Cardiac silhouette is within normal limits. No pneumothorax is seen. Patient is pending head CT at this time Discharge - Follow up/Referral Referrals: Nicholas Healy [Primary Care Provider] - - Patient Discharge Instructions - Post Discharge Activity
--- NOTE | 2019-01-12 22:55 | PDOC ---
*Physical Exam - Vital Signs Last Vital Signs Temp Pulse Resp BP Pulse Ox 98.0 F 88 17 148/80 96 01/12/19 20:57 01/12/19 20:57 01/12/19 20:57 01/12/19 20:57 01/12/19 20:57 ED Treatment Course - LABORATORY CBC & Chemistry Diagram: 01/14/19 05:30 01/14/19 05:30 Medical Decision Making - Medical Decision Making 01/12/19 22:54 Mr. Kennedy is a 63 yo M pmhx of HLD, arrhythmia, CAD s/p cardiac cath at [facility] (no stents) 8 years agowho presents to the ER s/p an episode of lightheadedness, dizziness, shortness of breath intermittently over the past 4 days. (+) Head pressure (+) intermittent nausea but denies any vomiting. No fevers, chills, cough, chest pain. Pt seen by Midlevel Provider under my direct supervision Pt interviewed and examined, agree with history and physical examination Ancillary studies reviewed - Laboratory Tests 01/13/19 01/13/19 01/13/19 00:10 00:10 00:10 WBC 9.3 Hgb 14.5 Hct 43.6 Plt Count 221 INR 0.96 BUN 21.1 H Creatinine 0.8 Creatine Kinase 93 Troponin I < 0.02 Agree with plan per SIGN INSTALLER Virgilio PT will need to be admitted given his age, PMH 01/13/19 02:27 01/13/19 02:30 Discharge - Discharge Information Problems reviewed: Yes Clinical Impression/Diagnosis: Near syncope Condition: Stable - Follow up/Referral - Patient Discharge Instructions - Post Discharge Activity
[2019-01-13 00:40] LABS: BASO % 0.3 % (0-2.0); EOS % 2.6 % (0-4.5); HEMATOCRIT 43.6 % (35.4-49); HEMOGLOBIN 14.5 GM/dL (11.7-16.9); LYMPH % 26.7 % (8-40); MCH 27.8 pg (25.7-33.7); MCHC 33.3 g/dl (32.0-35.9); MEAN CELL VOLUME 83.6 fl (80-96); MEAN PLT VOLUME 7.8 fl (7.5-11.1); MONO % 10.3 % (3.8-10.2); NEUT % 60.1 % (42.8-82.8); PLATELET COUNT 221 K/MM3 (134-434); RBC 5.21 M/mm3 (4.00-5.60); RDW 13.9 % (11.9-15.9); WHITE BLOOD COUNT 9.3 K/mm3 (4.0-10.0)
[2019-01-13 00:57] LABS: INR 0.96 (0.83-1.09); PROTHROMBIN TIME (PATIENT) 11.3 SEC (9.7-13.0)
[2019-01-13 01:07] LABS: ALBUMIN 3.6 g/dl (3.4-5.0); ALK PHOS 115 U/L (45-117); ANION GAP 6 MMOL/L (8-16); BILIRUBIN,TOTAL 0.4 mg/dL (0.2-1); BLOOD UREA NITROGEN 21.1 mg/dL (7-18); CALCIUM 8.6 mg/dL (8.5-10.1); CHLORIDE 104 mmol/L (98-107); CO2 29 mmol/L (21-32); CREATININE 0.8 mg/dL (0.55-1.3); GLUCOSE,RANDOM 94 mg/dL (74-106); MAGNESIUM 2.4 mg/dL (1.8-2.4); N-TERMINAL BNP 6.3 pg/ml (5-125); POTASSIUM 3.9 mmol/L (3.5-5.1); SGOT/AST 18 U/L (15-37); SGPT/ALT 36 U/L (13-61); SODIUM 139 mmol/L (136-145); TOT PROT 6.5 g/dl (6.4-8.2)
--- NOTE | 2019-01-13 05:44 | PDOC ---
*Physical Exam - Vital Signs Last Vital Signs Temp Pulse Resp BP Pulse Ox 98.0 F 78 16 141/81 100 01/12/19 20:57 01/13/19 03:59 01/13/19 03:59 01/13/19 03:59 01/13/19 03:59 ED Treatment Course - LABORATORY CBC & Chemistry Diagram: 01/13/19 00:10 01/13/19 00:10 - ADDITIONAL ORDERS Additional order review: Laboratory Results 01/13/19 01/13/19 01/13/19 00:10 00:10 00:10 PT with INR 11.30 INR 0.96 Sodium 139 Potassium 3.9 Chloride 104 Carbon Dioxide 29 Anion Gap 6 L BUN 21.1 H Creatinine 0.8 Est GFR (CKD-EPI)AfAm 110.19 Est GFR (CKD-EPI)NonAf 95.07 Random Glucose 94 Calcium 8.6 Magnesium 2.4 Total Bilirubin 0.4 AST 18 ALT 36 Alkaline Phosphatase 115 Creatine Kinase 93 Cancelled Troponin I < 0.02 Cancelled B-Natriuretic Peptide 6.3 Total Protein 6.5 Albumin 3.6 01/13/19 00:10 RBC 5.21 MCV 83.6 MCHC 33.3 RDW 13.9 MPV 7.8 Neutrophils % 60.1 Lymphocytes % 26.7 Monocytes % 10.3 H Eosinophils % 2.6 Basophils % 0.3 - RADIOLOGY Radiograph Interpretation: CT head w/o FINDINGS: No evidence of hemorrhage, acute territorial infarction, mass effect, midline shift, hydrocephalus, or extra-axial collections. Mild bilateral maxillary sinus mucoperiosteal thickening No skull fracture 01/13/19 05:43 Medical Decision Making - Medical Decision Making Pt received as signout CT w/o acute pathology Plan for tele-obs for near-syncope 01/13/19 05:43 Discharge - Discharge Information Problems reviewed: Yes Clinical Impression/Diagnosis: Near syncope Condition: Stable - Admission Yes - Follow up/Referral Referrals: Nicholas Healy [Primary Care Provider] - - Patient Discharge Instructions - Post Discharge Activity
--- NOTE | 2019-01-13 06:04 | PN ---
Teaching Attending Note Name of Resident: Terrie Roy ATTENDING PHYSICIAN STATEMENT I saw and evaluated the patient. I reviewed the resident's note and discussed the case with the resident. I agree with the resident's findings and plan as documented. SUBJECTIVE: Patient is a 63 year old man with a PMH of HLD, Irregular heartbeat, Panic attacks, Anxiety, Cardiac cath at [facility] (8 years ago; no stents), Appendectomy and "Liver problems" who presents to the ER after feeling lightheaded, dizzy with SOB over the past 4 days. He denies loss of consciousness. He reports having a warm sensation as well as a pressure to global head. He reports he had similar symptoms prior to his cardiac cath. Patient reports having intermittent nausea but denies any vomiting. Has had prior episodes of dizziness and near syncope requiring ER visit. Has been on Meclizine. He denies fevers, chills, cough, chest pain. No recent travel or sick contacts. Denies smoking, alcohol abuse or illicit drug use. OBJECTIVE: Alert and not orthostatic Vital Signs Period Temp Pulse Resp BP Sys/Castañeda Pulse Ox Last 24 Hr 98.0 F 75-88 16-18 117-148/68-81 96-100 HEENT: No Jaundice, eye redness or discharge, PERRLA, EOMI. Normocephalic, atraumatic. External ears are normal and hearing is grossly intact. No nasal discharge. Neck: Supple, nontender. No palpable adenopathy or thyromegaly. No JVD Chest: Good effort. Clear to auscultation and percussion. Heart: Regular. No S3, rub or murmur Abdomen: Not distended, soft, nontender and no HSM. No rebound or guarding. Normal bowel sounds. Ext: Peripheral pulses intact. No leg edema. Skin: Warm and dry. No petechiae, rash or ecchymosis. Neuro: Alert. Oriented x3. CN 2-12 grossly intact. Sensation grossly intact in all four extremities and DTR are symmetric. Psych: Appropriate mood and affect. Good insight. Home Medications Medication Instructions Recorded Aspirin Coated [Ecotrin -] 81 mg PO DAILY #30 tab 10/20/16 Metoprolol Succinate [Toprol XL -] 25 mg PO DAILY #30 tab 10/20/16 Rosuvastatin [Crestor -] 10 mg PO HS #30 tablet 10/20/16 Diazepam [Valium] 2 mg PO DAILY #4 tablet MDD 1 11/10/16 tablet Meclizine HCl [Antivert -] 25 mg PO TID #21 tablet 11/10/16 Abnormal Lab Results 01/13/19 01/13/19 00:10 00:10 Monocytes % 10.3 H Anion Gap 6 L BUN 21.1 H ASSESSMENT AND PLAN: 1. Lightheadedness - Cause unclear. No acute patholgy noted on head CT and CXR. EKG shows NSR with PVCs and no ischemic changes and initial troponin is negative. UA and urine toxicology are pending. Will monitor on telemetry, get ECHO, carotid doppler and brain MRI. Will do neurochecks, implement fall precautions and consult Neurology. Hydrate gently. Will continue comprehensive care for all of patients comorbid conditions. 2. Obesity Counseled on the risks associated with obesity. Will provide patient all the necessary assistance, counseling and positive reinforcement to facilitate weight loss. Consult airborne operations. 3. Hypertension - Restart suitable outpatient antihypertensive drugs when clinically appropriate. Revise regimen to ensure [id number] excellent BP control and children's counselor patient on the injurious effects of uncontrolled hypertension. Nonpharmacologic measures to control hypertension like weight loss , salt restriction and exercise discussed. Importance of adherence to treatment regimen and attainment of normotension emphasized. 4. DVT prophylaxis - Lovenox 40 mg SQ q 24 hours. 5. Advance directives - Full code
[2019-01-13] MEDS ORDERED: SODIUM CHLORIDE 1,000 ML IV SCH (12:00)
--- NOTE | 2019-01-13 12:08 | HP ---
CHIEF COMPLAINT: Pre-Syncope PCP: HISTORY OF PRESENT ILLNESS: 63 y/o M with PMHx of CAD (s/p Cath, No stents placed), "Irregular heart rhythm, " HTN, Dyslipidemia (claims only elevated triglycerides), Prediabetes, Anxiety, GERD presents after an episode of Dizziness. Patient is primarily turkish speaking, thus [employer] import coordination and production head was used, [employer] [id number]. Patient says that for the last 4 days, he has had intermittent episodes of sudden onset dizziness that have self resolved. Yesterday, he had sudden onset nausea and felt his head was hot (without pain); At this time he measured his SBP to be in the 170' s for which he took his home dose HCTZ/Losartan. He additionally felt anxious during these episodes; endorse a history of panicking and panic attacks. He tried to work through these symptoms but at 1800, he felt worsening dizziness prompting him to visit [facility]. Denies any associated chest pain, SOB lightheadedness or LOC. Additionally endorses Nausea. Denies any fevers, chills, vomiting, diarrhea, constipation. ER course was notable for: (1) (2) (3) Recent Travel: Returned 1 week ago from a month long trip to [facility] PAST MEDICAL HISTORY: As above PAST SURGICAL HISTORY: Appendectomy, cardiac cath Social History: Smoking: Denies Alcohol: Occasional Drugs: Denies Occupation: [employer], [employer] Residence: With daughter Ambulation: Without assistance Allergies No Known Allergies Allergy (Verified 01/12/19 20:57) HOME MEDICATIONS: Home Medications Medication Instructions Recorded Aspirin Coated [Ecotrin -] 81 mg PO DAILY #30 tab 10/20/16 Metoprolol Succinate [Toprol XL -] 25 mg PO DAILY #30 tab 10/20/16 Rosuvastatin [Crestor -] 10 mg PO HS #30 tablet 10/20/16 Diazepam [Valium] 2 mg PO DAILY #4 tablet MDD 1 11/10/16 tablet Meclizine HCl [Antivert -] 25 mg PO TID #21 tablet 11/10/16 REVIEW OF SYSTEMS As per HPI PHYSICAL EXAMINATION Vital Signs - 24 hr 01/12/19 01/13/19 01/13/19 20:57 00:22 00:36 Temperature 98.0 F Pulse Rate 88 75 Pulse Rate [ 75 Left] Respiratory 17 18 Rate Blood Pressure 148/80 Blood Pressure 117/68 [Left Arm] O2 Sat by Pulse 96 100 99 Oximetry (%) 01/13/19 01/13/19 03:59 06:25 Temperature 97.6 F Pulse Rate Pulse Rate [ 78 62 Left] Respiratory 16 Rate Blood Pressure Blood Pressure 141/81 111/67 [Left Arm] O2 Sat by Pulse 100 100 Oximetry (%) GENERAL: A&Ox3,NAD HEAD: NCAT EYES: PERRL, EOMI EARS, NOSE, THROAT: MMM NECK: Supple, No JVD LUNGS: Clear to auscultation bilaterally. No wheezes, no crackles. HEART: Regular rate and rhythm, normal S1 and S2 without murmur ABDOMEN: Obese, Soft, nontender, not distended, + bowel sounds, no guarding, no rebound MUSCULOSKELETAL: Decreased ROM of R shoulder EXTREMITIES: No peripheral edema. NEUROLOGICAL: Cranial nerves II-XII intact. Normal speech. Gross sensation intact throughout. 5/5 Muscle strength to handgrip, elbow flexion/extension, dorsiflexion, plantarflexion. SKIN: Warm, dry Laboratory Results - last 24 hr 01/13/19 01/13/19 01/13/19 00:10 00:10 00:10 WBC 9.3 RBC 5.21 Hgb 14.5 Hct 43.6 MCV 83.6 MCH 27.8 MCHC 33.3 RDW 13.9 Plt Count 221 MPV 7.8 Absolute Neuts (auto) 5.6 Neutrophils % 60.1 Lymphocytes % 26.7 Monocytes % 10.3 H Eosinophils % 2.6 Basophils % 0.3 Nucleated RBC % 0 PT with INR INR Sodium 139 Potassium 3.9 Chloride 104 Carbon Dioxide 29 Anion Gap 6 L BUN 21.1 H Creatinine 0.8 Est GFR (CKD-EPI)AfAm 110.19 Est GFR (CKD-EPI)NonAf 95.07 Random Glucose 94 Calcium 8.6 Magnesium 2.4 Total Bilirubin 0.4 AST 18 ALT 36 Alkaline Phosphatase 115 Creatine Kinase Cancelled 93 Troponin I Cancelled < 0.02 B-Natriuretic Peptide 6.3 Total Protein 6.5 Albumin 3.6 01/13/19 00:10 WBC RBC Hgb Hct MCV MCH MCHC RDW Plt Count MPV Absolute Neuts (auto) Neutrophils % Lymphocytes % Monocytes % Eosinophils % Basophils % Nucleated RBC % PT with INR 11.30 INR 0.96 Sodium Potassium Chloride Carbon Dioxide Anion Gap BUN Creatinine Est GFR (CKD-EPI)AfAm Est GFR (CKD-EPI)NonAf Random Glucose Calcium Magnesium Total Bilirubin AST ALT Alkaline Phosphatase Creatine Kinase Troponin I B-Natriuretic Peptide Total Protein Albumin Active Medications Sodium Chloride (Normal Saline -) 1,000 mls @ 75 mls/hr IV ASDIR [facility] Last Admin: 01/13/19 13:03 Dose: 75 mls/hr ASSESSMENT/PLAN: 63 y/o M with PMHx of CAD (s/p Cath, No stents placed), "Irregular heart rhythm, " HTN, Dyslipidemia (claims only elevated triglycerides), Prediabetes, Anxiety, GERD presents after an episode of Dizziness. #Dizziness -Unclear etiology but concerning for near syncope -Imaging without acute pathology, EKG without ischemic changes, Trop <0.02, Labwork does not suggest infectious etiology -Check Orthostatics -Continue IV Hydration -Tele #Limited R Shoulder ROM -Will refer to Ortho and physical therapy for outpatient follow up #FEN -NS @ 75 -Replete lytes PRN -Na controlled diet #PPx -DVT: SCDs Dispo: Tele-Obs Visit type - Emergency Visit Emergency Visit: Yes ED Registration Date: 01/13/19 Care time: The patient presented to the Emergency Department on the above date and was hospitalized for further evaluation of their emergent condition. - New Patient This patient is new to me today: Yes Date on this admission: 01/13/19 - Critical Care Critical Care patient: No ATTENDING PHYSICIAN STATEMENT I saw and evaluated the patient. I reviewed the resident's note and discussed the case with the resident. I agree with the resident's findings and plan as documented. SUBJECTIVE: OBJECTIVE: ASSESSMENT AND PLAN:
--- NOTE | 2019-01-13 14:58 | EKG ---
Test Reason : Blood Pressure : / mmHG Vent. Rate : 083 BPM Atrial Rate : 083 BPM P-R Int : 158 ms QRS Dur : 096 ms QT Int : 366 ms P-R-T Axes : 047 -21 035 degrees QTc Int : 430 ms SINUS RHYTHM WITH OCCASIONAL PREMATURE VENTRICULAR COMPLEXES OTHERWISE NORMAL ECG WHEN COMPARED WITH ECG OF 10-NOV-2016 09:28, PREMATURE VENTRICULAR COMPLEXES ARE NOW PRESENT NONSPECIFIC T WAVE ABNORMALITY HAS REPLACED INVERTED T WAVES IN INFERIOR LEADS Confirmed by Adelaida Lara ([id number]) on 01/13/2019 2:57:28 PM Referred By: Confirmed By:Adelaida Lara
[2019-01-13] MEDS ORDERED: FLU VACCINE QUAD 60 MCG/0.5 ML (MDV 19-20) IM ONE (17:00)
[2019-01-13] MEDS ORDERED: MECLIZINE HCL 25 MG TABLET (FP) ONE (21:52)
[2019-01-13] MEDS ORDERED: ROSUVASTATIN CA 10 MG TABLET (FP) PO SCH (22:00)
[2019-01-13] MEDS: MECLIZINE HCL 25 MG TABLET (FP) PO SCH (22:28)
[2019-01-14] MEDS ORDERED: MECLIZINE HCL 25 MG TABLET (FP) ONE (06:03)
[2019-01-14] MEDS: MECLIZINE HCL 25 MG TABLET (FP) PO SCH (06:46)
[2019-01-14 06:47] LABS: BASO % 0.5 % (0-2.0); EOS % 2.7 % (0-4.5); HEMATOCRIT 42.3 % (35.4-49); HEMOGLOBIN 14.2 GM/dL (11.7-16.9); LYMPH % 27.5 % (8-40); MCH 28.2 pg (25.7-33.7); MCHC 33.6 g/dl (32.0-35.9); MEAN CELL VOLUME 83.7 fl (80-96); MEAN PLT VOLUME 7.9 fl (7.5-11.1); MONO % 10.4 % (3.8-10.2); NEUT % 58.9 % (42.8-82.8); PLATELET COUNT 211 K/MM3 (134-434); RBC 5.06 M/mm3 (4.00-5.60); WHITE BLOOD COUNT 8.1 K/mm3 (4.0-10.0)
[2019-01-14 07:06] VITALS: BP 108/52; PULSE 64; TEMP 97.5
[2019-01-14 07:14] LABS: ALBUMIN 3.3 g/dl (3.4-5.0); BILIRUBIN,TOTAL 0.4 mg/dL (0.2-1); BLOOD UREA NITROGEN 15.6 mg/dL (7-18); CALCIUM 8.7 mg/dL (8.5-10.1); CREATININE 0.8 mg/dL (0.55-1.3); MAGNESIUM 2.4 mg/dL (1.8-2.4); PHOSPHOROUS 3.9 mg/dL (2.5-4.9); POTASSIUM 3.7 mmol/L (3.5-5.1); TOT PROT 6.4 g/dl (6.4-8.2)
--- NOTE | 2019-01-14 09:39 | DS ---
Physical Exam: SUBJECTIVE: Patient seen and examined, no complaints or lightheadedness. OBJECTIVE: Vital Signs Period Temp Pulse Resp BP Sys/Castañeda Pulse Ox Last 24 Hr 97.3 F-97.5 F 64-80 16-18 108-149/52-87 95-99 Intake & Output 01/11/19 01/12/19 01/13/19 01/14/19 23:59 23:59 23:59 23:59 Weight 185 lb PHYSICAL EXAM GENERAL: The patient is awake, alert, and fully oriented, in no acute distress. HEAD: Normal with no signs of trauma. EYES: PERRL, extraocular movements intact, sclera anicteric, conjunctiva clear. ENT: Ears normal, nares patent, oropharynx clear without exudates, moist mucous membranes. NECK: Trachea midline, full range of motion, supple. LUNGS: Breath sounds equal, clear to auscultation bilaterally, no wheezes, no crackles, no accessory muscle use. HEART: Regular rate and rhythm, S1, S2, telemetry with no events or PVC ABDOMEN: Soft, nontender, nondistended, normoactive bowel sounds, no guarding, no rebound, no hepatosplenomegaly, no masses. EXTREMITIES: 2+ pulses, warm, well-perfused, no edema. NEUROLOGICAL: AAOX3, Cranial nerves II through XII grossly intact. Normal speech , gait not observed. PSYCH: Normal mood, normal affect. SKIN: Warm, dry, normal turgor, no rashes or lesions noted. LABS Laboratory Results - last 24 hr 01/13/19 01/14/19 01/14/19 19:20 05:30 05:30 WBC 8.1 RBC 5.06 Hgb 14.2 Hct 42.3 MCV 83.7 MCH 28.2 MCHC 33.6 RDW 14.0 Plt Count 211 MPV 7.9 Absolute Neuts (auto) 4.8 Neutrophils % 58.9 Lymphocytes % 27.5 Monocytes % 10.4 H Eosinophils % 2.7 Basophils % 0.5 Nucleated RBC % 0 Sodium 141 Potassium 3.7 Chloride 106 Carbon Dioxide 28 Anion Gap 7 L BUN 15.6 Creatinine 0.8 Est GFR (CKD-EPI)AfAm 110.19 Est GFR (CKD-EPI)NonAf 95.07 Random Glucose 89 Calcium 8.7 Phosphorus 3.9 Magnesium 2.4 Total Bilirubin 0.4 AST 17 ALT 34 Alkaline Phosphatase 106 Troponin I 0.02 Total Protein 6.[address] head: Clinical information: headache, dizziness no intracranial hemorrhage is seen. There is no gross infarct or mass lesion. No extra-axial fluid collection is noted. There is no obstructive hydrocephalus. The calvarium appears intact. Interval development of fluid accumulation is noted within the left mastoid air cells. No associated gross bone erosion is visualized. Mild right maxillary and mild right posterior ethmoid sinus mucosal thickening is seen. Impression: No CT evidence of acute intracranial pathology. In comparison to a 2017 CT exam interval development of fluid accumulation is noted within the left mastoid air cells. Mild paranasal sinus disease is seen as on the previous exam. CXR: no acute process HOSPITAL COURSE: Date of Admission:01/13/19 Date of Discharge: 01/14/19 Minutes to complete discharge: 35 Discharge Summary Problems reviewed: Yes Reason For Visit: PRE SYNCOPE, GASTROESOPHAGEAL REFLUX DIASEASE Current Active Problems Near syncope (Acute) Hospital Course: 63 y/o M with PMHx of CAD (s/p Cath, No stents placed), "Irregular heart rhythm, " HTN, Dyslipidemia (claims only elevated triglycerides), Prediabetes, Anxiety, GERD Condition: Stable - Instructions Diet, Activity, Other Instructions: You were admitted with light headedness, were watched on a monitor with no concerns. Continue all your home medications as before Follow up with your primary care doctor in 1 week Discuss with your doctor for outpatient cardiology follow up and additional testing if symptoms recur. Maintain adequate hydration If you notice severe light headedness, or any new concerns, please call 911 or come to ED. Referrals: Nicholas Healy [Primary Care Provider] - Disposition: HOME - Home Medications Comprehensive Discharge Medication List: Ambulatory Orders Rosuvastatin [Crestor -] 10 mg PO HS #30 tablet 10/20/16 Meclizine HCl [Antivert -] 25 mg PO TID #21 tablet 11/10/16 Losartan 50Mg/Hctz 12.5MG [Hyzaar -] 1 tab PO DAILY 01/13/19 This patient is new to me today: No Emergency Visit: Yes ED Registration Date: 01/13/19 Care time: The patient presented to the Emergency Department on the above date and was hospitalized for further evaluation of their emergent condition. Critical Care patient: No - Discharge Referral Referred to [facility] Med P.C.: No
[2019-01-14] MEDS ORDERED: LOSARTAN 50MG/HCTZ 12.5MG 1 TAB (FP) PO SCH (10:00)
== END 2019-01-14 10:34 | disposition home or self-care (01) ==
LOC: JER 20:54 → JERBED 01-13 06:05
PROVIDERS: ADMIT Hospitalist; ATTEND Hospitalist
PROC: 3E0337Z Introduction of Electrolytic and Water Balance Substance into Peripheral Vein, Percutaneous Approach (ICD-10-PCS; principal; 2019-01-13)
PROC: 3E0234Z Introduction of Serum, Toxoid and Vaccine into Muscle, Percutaneous Approach (ICD-10-PCS; 2019-01-13)
DX: R55 Syncope and collapse (principal); R42 Dizziness and giddiness; R51 Headache; I10 Essential (primary) hypertension; E78.5 Hyperlipidemia, unspecified; I25.10 Atherosclerotic heart disease of native coronary artery without angina pectoris; I49.9 Cardiac arrhythmia, unspecified; R73.03 Prediabetes; K21.9 Gastro-esophageal reflux disease without esophagitis; Z98.61 Coronary angioplasty status; E66.9 Obesity, unspecified; Z68.32 Body mass index [BMI] 32.0-32.9, adult; Z29.8 Encounter for other specified prophylactic measures; Z23 Encounter for immunization
CPT/HCPCS: 36415; 70450-TC; 71046-TC-FY; 80053; 82550; 83735; 83880; 84100; 84484; 85025; 85610; 93005; 93010; 99285-25; G0378; J7030; Q2036

== ENCOUNTER 2023-05-01 09:46 | Emergency (ER) | payer OTHER ==
[2023-05-01 09:52] VITALS: RESP 18; TEMP 98.6; BMI 32.5
[2023-05-01] MEDS ORDERED: MAG HYDROX/AL HYDROX/SIMETH -MYLANTA- ORAL SUSPENSION PO ONE (10:21)
[2023-05-01] MEDS ORDERED: ONDANSETRON 4 MG/2 ML VIAL IVPUSH ONE (10:21)
[2023-05-01] MEDS ORDERED: SUCRALFATE 1 GM TABLET (FP) PO ONE (10:21)
[2023-05-01] MEDS ORDERED: ACETAMINOPHEN 1000 MG/100 ML BAG IVPB ONE (10:21)
[2023-05-01] MEDS ORDERED: FAMOTIDINE 20 MG/50 ML IVPB 20 MG/50 ML MG IVPB ONE ×2 (10:21→10:40)
[2023-05-01] MEDS ORDERED: ACETAMINOPHEN INJECTION 100 ML IVPB ONE (10:39)
[2023-05-01] MEDS ORDERED: MAG HYDROX/AL HYDROX/SIMETH 30 ML UNIT-DOSE CUP ONE (10:40)
[2023-05-01] MEDS ORDERED: ONDANSETRON 4 MG/2 ML VIAL ONE (10:40)
[2023-05-01] MEDS ORDERED: SUCRALFATE 1 GM TABLET (FP) ONE (11:02)
[2023-05-01 11:32] LABS: BASO % 0.2 % (0-2.0); EOS % 1.3 % (0-4.5); HEMOGLOBIN 15.6 GM/dL (11.7-16.9); LYMPH % 12.8 % (8-40); MCH 28.1 pg (25.7-33.7); MCHC 33.2 g/dl (32.0-35.9); MEAN CELL VOLUME 84.6 fl (80-96); MONO % 6.9 % (3.8-10.2); NEUT % 78.8 % (42.8-82.8); PLATELET COUNT 228 10^3/uL (134-434); RBC 5.55 M/mm3 (4.00-5.60); RDW 13.9 % (11.9-15.9); WHITE BLOOD COUNT 9.9 K/mm3 (4.0-10.0)
[2023-05-01 11:51] LABS: POTASSIUM 4.4 mmol/L (3.5-5.1)
[2023-05-01 11:54] LABS: ALBUMIN 3.7 g/dl (3.4-5.0); BLOOD UREA NITROGEN 20.6 mg/dL (7-18)
[2023-05-01 11:56] LABS: CREATININE 0.8 mg/dL (0.55-1.3)
[2023-05-01 11:58] LABS: BILIRUBIN,TOTAL 0.4 mg/dL (0.2-1); TOT PROT 7.3 g/dl (6.4-8.2)
[2023-05-01] MEDS ORDERED: METOCLOPRAMIDE HCL INJECTION 10 MG/2 ML VIAL IVPB ONE (12:18)
[2023-05-01 12:25] VITALS: BP 131/66; PULSE 66
[2023-05-01] MEDS ORDERED: METOCLOPRAMIDE HCL INJECTION 10 MG/2 ML VIAL ONE (12:26)
== END 2023-05-01 14:15 | disposition home or self-care (01) ==
LOC: JER 09:46
PROC: 3E033GC Introduction of Other Therapeutic Substance into Peripheral Vein, Percutaneous Approach (ICD-10-PCS; principal; 2023-05-01)
PROC: 3E033GC Introduction of Other Therapeutic Substance into Peripheral Vein, Percutaneous Approach (ICD-10-PCS; 2023-05-01)
PROC: 3E033GC Introduction of Other Therapeutic Substance into Peripheral Vein, Percutaneous Approach (ICD-10-PCS; 2023-05-01)
PROC: 3E033NZ Introduction of Analgesics, Hypnotics, Sedatives into Peripheral Vein, Percutaneous Approach (ICD-10-PCS; 2023-05-01)
DX: R10.13 Epigastric pain (principal); R10.11 Right upper quadrant pain; R11.0 Nausea; K76.0 Fatty (change of) liver, not elsewhere classified; K57.30 Diverticulosis of large intestine without perforation or abscess without bleeding; K46.9 Unspecified abdominal hernia without obstruction or gangrene; Z20.822 Contact with and (suspected) exposure to COVID-19
CPT/HCPCS: 0241U-QW; 36415; 71046-TC-FY; 74177-TC; 76705-TC; 80053; 83690; 84484; 85025; 93005; 93010; 99285-25